=== PATIENT | male | born 1970 | race Caucasian/White ===

== ENCOUNTER 2022-06-04 08:01 | Outpatient (CLI) | payer BC, SELFPAY ==
[2022-06-04 10:14] LABS: Alanine Aminotransferase* 97 U/L (4-50); Aspartate Amino Transferase* 43 U/L (12-35); Cholesterol* 116 mg/dL (90-199)
[2022-06-04 10:15] LABS: HDL Cholesterol* 39 mg/dL (>=40); LDL Cholesterol Calculated 58 mg/dL (<100); Triglycerides* 96 mg/dL (40-149)
[2022-06-04 10:16] LABS: Creatinine Urine 259.8 mg/dL
[2022-06-04 10:22] LABS: Microalbumin Creatinine Ratio 0 mg/g (0-30); Microalbumin Urine 2 mg/dL
== END 2022-06-04 08:02 | disposition home or self-care (01) ==
PROVIDERS: PCP Family Medicine; Visit Provider Family Medicine
DX: E11.9 Type 2 diabetes mellitus without complications (principal); I10 Essential (primary) hypertension; E78.5 Hyperlipidemia, unspecified
CPT/HCPCS: 80061; 82043; 82570; 84450; 84460

== ENCOUNTER 2023-04-12 08:00 | Outpatient (CLI) | payer BC, SELFPAY | END 2023-04-12 08:01 | disposition home or self-care (01) | LOC: NFLDREF 04-14 18:10 | PROVIDERS: PCP Family Medicine; Referring Provider Family Medicine; Visit Provider Family Medicine | DX: Z00.00 Encounter for general adult medical examination without abnormal findings (principal); E11.9 Type 2 diabetes mellitus without complications; E78.5 Hyperlipidemia, unspecified; E66.9 Obesity, unspecified; I10 Essential (primary) hypertension; R79.89 Other specified abnormal findings of blood chemistry; Z12.5 Encounter for screening for malignant neoplasm of prostate | CPT/HCPCS: 80053; 80061; 82043; 82570; 84153 ==

== ENCOUNTER 2024-06-09 07:51 | Outpatient (CLI) | payer BC, SELFPAY | END 2024-06-09 07:52 | disposition home or self-care (01) | LOC: NFLDREF 06-10 10:50 | PROVIDERS: Absent Provider Family Medicine; PCP Family Medicine; Referring Provider Family Medicine; Visit Provider Family Medicine | DX: I10 Essential (primary) hypertension (principal); E11.9 Type 2 diabetes mellitus without complications; E78.5 Hyperlipidemia, unspecified; E66.9 Obesity, unspecified; R79.89 Other specified abnormal findings of blood chemistry; Z12.5 Encounter for screening for malignant neoplasm of prostate | CPT/HCPCS: 80053; 80061; 82043; 82570; G0103 ==

== ENCOUNTER 2025-08-27 08:00 | Outpatient (CLI) | payer BC, SELFPAY | END 2025-08-27 08:01 | disposition home or self-care (01) | LOC: NFLDREF 08-28 19:45 | PROVIDERS: PCP Family Medicine; Referring Provider Family Medicine; Visit Provider Family Medicine | DX: E11.9 Type 2 diabetes mellitus without complications (principal) | CPT/HCPCS: 80053; 80061; 82043; 82570 ==